=== PATIENT | female | born 1995 | race Hispanic/Latino ===

== ENCOUNTER 2017-09-12 13:33 | Emergency (ER) | payer OTHER, SELFPAY ==
[~2017-09-12 13:33] MED LIST: ISOVUE-370 76%-LOCM 1 ML ONE
[2017-09-12] MEDS ORDERED: Ketorolac Tromethamine 30 MG/ML VIAL ONE (14:44)
[2017-09-12] MEDS ORDERED: Acetaminophen 325 MG TAB ONE (14:50)
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
== END 2017-09-12 17:24 | disposition home or self-care (01) ==
LOC: ERS 13:33
DX: S10.93XA Contusion of unspecified part of neck, initial encounter (principal); S90.511A Abrasion, right ankle, initial encounter; V43.52XA Car driver injured in collision with other type car in traffic accident, initial encounter; W22.11XA Striking against or struck by driver side automobile airbag, initial encounter
CPT/HCPCS: 70450; 71260; 72125; 74177; 96374; G0390; J1885